=== PATIENT | female | born 1955 | race Caucasian/White ===

== ENCOUNTER 2017-01-11 06:32 | Day surgery (SDC) | payer MEDICARE, OTHER ==
[2017-01-10 10:42] LABS: HEMATOCRIT 43.8 % (36.0-48.0); HEMOGLOBIN 14.7 g/dL (12.0-16.0)
[2017-01-10 10:58] LABS: A/G RATIO 1.3 (0.7-1.9); ALBUMIN 4.3 G/DL (3.5-5.0); ALKALINE PHOSPHATASE 98 U/L (45-117); BUN (BLOOD UREA NITROGEN) 20 MG/DL (6-23); CALCIUM, SERUM 9.6 MG/DL (8.5-10.4); CHLORIDE, SERUM 102 MMOL/L (96-112); CO2 (CARBON DIOXIDE) 31 MMOL/L (24-34); CREATININE 0.71 MG/DL (0.55-1.02); GFR AFRICAN AMERICAN 107 ML/MIN (>=60); GFR NON AFRICAN AMERICAN 92 ML/MIN (>=60); GLOBULIN 3.2 G/DL (2.5-4.1); GLUCOSE, SERUM 99 MG/DL (60-99); POTASSIUM, SERUM 4.3 MMOL/L (3.5-5.3); SGOT(AST) 21 U/L (5-40); SGPT(ALT) 32 U/L (5-65); SODIUM, SERUM 138 MMOL/L (135-148); TOTAL BILIRUBIN 0.4 MG/DL (0-1.2); TOTAL PROTEIN 7.5 G/DL (6.0-8.5)
--- NOTE | ~2017-01-11 | OP ---
Record Of Operation [facility] [address] [place]. [address] NAME: ARTI PABLO : 55 STATUS : REG [facility]#: [id number] AGE: 61 ADM/REG DATE : 01/11/17 MR#: [id number] REPORT SERV DATE: 01/11/17 DICTATED BY: JABARI WEISS DATE: 01/11/17 REPORT STATUS : Draft TRANSCRIBED BY: MODL DATE: 01/11/17 DATE OF PROCEDURE: 01/11/2017 PREOPERATIVE DIAGNOSES: 1. Cholelithiasis with chronic cholecystitis. 2. Hypertension. 3. Hypothyroidism. 4. Anxiety. POSTOPERATIVE DIAGNOSES: 1. Cholelithiasis with chronic cholecystitis. 2. Hypertension. 3. Hypothyroidism. 4. Anxiety. PROCEDURE: Laparoscopic cholecystectomy. ANESTHESIA: General. SURGEON: Jabari Weiss M.D. [employer] MANAGER: Stas. COMPLICATIONS: None. DRAINS: None. ESTIMATED BLOOD LOSS: 20 mL. OPERATIVE TECHNIQUE: The patient was brought to the operating room and placed on the table in supine position. She had preoperative IV antibiotics. She had sequential hose in place. She voided prior to the procedure. She underwent general endotracheal anesthesia, and was prepped and draped in sterile fashion, and a time-out was completed. Local anesthesia was instilled to the periumbilical skin. A 15 blade knife was used to make incision through the base of the umbilicus longitudinally. The skin and fascia were elevated and a Veress needle was inserted and the water drop test safely performed. A 15 mm of pneumoperitoneum was obtained. An 11 mm trocar was inserted through the umbilicus followed by the laparoscope. There was no evidence of Veress or trocar injury. The patient was then placed in reverse Trendelenburg and rolled to the left. An 11 mm subxiphoid and two 5 mm right upper quadrant trocars were placed under direct visualization. The patient was noted to have some hyperemia of the gallbladder and gallbladder wall thickening consistent with chronic cholecystitis. She had normal preoperative liver function studies and normal-sized cystic duct, and therefore no cholangiogram was obtained. At this point, the gallbladder fundus was grasped and elevated over the liver edge and the infundibulum was retracted inferolaterally. Careful blunt dissection ensued with a [place] dissector, the cystic duct gallbladder junction at its lateral aspect. This dissection continued circumferentially at Record Of Operation [facility] [address] [place]. [address] NAME: ARTI PABLO : 55 STATUS : REG [facility] PAT#: [id number] AGE: 61 ADM/REG DATE : 01/11/17 MR#: [id number] REPORT SERV DATE: 01/11/17 DICTATED BY: JABARI WEISS DATE: 01/11/17 REPORT STATUS : Draft TRANSCRIBED BY: MODL DATE: 01/11/17 this level until the cystic duct was encircled for several centimeters. Dissection more medial using the [place] dissector and blunt dissection continued until the cystic artery was identified along with a minimally enlarged cystic node. The cystic artery and lymphatic channel were dissected circumferentially in conjunction and until they were isolated for several centimeters circumferentially. At this point, two clips were placed proximally and distally on the cystic duct, cystic artery, and lymphatic channel. They were divided between the clips without encroachment of common bile duct that was visualized. The gallbladder was then removed from the fossa using the electrocautery hook I began extracting through the umbilicus. The laparoscopic trocar were reinserted. Examination of hepatic fossa noted to be hemostatic. The clips were noted to be intact without encroachment of common bile duct. There was no evidence of any bleeding, biliary spillage, or other visual abnormalities. At this point, all the instruments and trocars removed under direct visualization as the pneumoperitoneum was aspirated. The umbilical fascia was reapproximated using a running 0 Vicryl suture. The skin edges were reapproximated using absorbable subcuticular Monocryl stitches and Dermabond was applied. She was extubated and taken to recovery room in stable condition. All sponge and needle counts reported correct. /SANDRA Jabari Weiss M.D. / [id number] CC: Memo Harkins TRACY
[~2017-01-11 06:32] MED LIST: BIOTIN PO; CALTRA600D PO; COQ-10 PO; CYMBALTA30 PO; CYMBALTA60 PO; DEXEDRINE15 MG PO; FOSAMAX70 MG PO; KLONO1 PO; LEVOTHYROXIN75 MCG PO; NEXIUM40 PO; SUPER B COMP PO; VITAMIN A8000 UNIT PO; VIVELLE SY0.075 MG/2 TOP; VOLT75 PO; VOLTAREN1 % T; ZETIA PO
== END 2017-01-11 13:54 | disposition home or self-care (01) ==
LOC: SDC 06:32
PROVIDERS: Surgery
PROC: 0FT44ZZ Resection of Gallbladder, Percutaneous Endoscopic Approach (ICD-10-PCS; principal; 2017-01-11 07:45)
DX: K80.10 Calculus of gallbladder with chronic cholecystitis without obstruction (principal); I10 Essential (primary) hypertension; E03.9 Hypothyroidism, unspecified; F41.9 Anxiety disorder, unspecified; D64.9 Anemia, unspecified; E78.00 Pure hypercholesterolemia, unspecified; F90.9 Attention-deficit hyperactivity disorder, unspecified type; Z88.2 Allergy status to sulfonamides; Z88.5 Allergy status to narcotic agent; Z88.8 Allergy status to other drugs, medicaments and biological substances; Z98.890 Other specified postprocedural states; Z79.899 Other long term (current) drug therapy; Z87.891 Personal history of nicotine dependence; Z90.710 Acquired absence of both cervix and uterus
CPT/HCPCS: 80053; 85014; 85018; 88304; 93005; A9270-GY; J0690; J1170; J2250; J2405; J2710; J3010; Q9967